=== PATIENT | female | born 1995 | race Caucasian/White ===

== ENCOUNTER 2020-05-27 15:25 | Emergency (ER) | payer OTHER ==
[~2020-05-27 15:25] MED LIST: GLUCOPHAGE850 MG PO; VENLAFAXINE HCL75 MG PO
[2020-05-27 16:38] LABS: BILIRUBIN NEGATIVE (NEGATIVE); BLOOD NEGATIVE Ery/uL (NEGATIVE); CLARITY CLEAR (CLEAR); COLOR YELLOW (YELLOW); GLUCOSE (U) NORMAL (NORMAL); LEUKOCYTES NEGATIVE Leu/uL (NEGATIVE); NITRITE NEGATIVE (NEGATIVE); PROTEIN NEGATIVE (NEGATIVE); SPECIFIC GRAVITY 1.025 (1.001-1.030); UROBILINOGEN 0.2 mg/dL (0.2-1.0)
[2020-05-27] MEDS ORDERED: NAPROXEN500 MG PO (18:22)
[2020-05-27] MEDS ORDERED: BACLOFEN 10MG T10 MG PO (18:22)
== END 2020-05-27 18:55 | disposition home or self-care (01) ==
LOC: FER 15:25
PROVIDERS: Emergency Medicine
DX: M54.41 Lumbago with sciatica, right side (principal)
CPT/HCPCS: 81003; 96372; 99283; J1100; J1885

== ENCOUNTER 2020-08-31 21:15 | Emergency (ER) | payer OTHER ==
[~2020-08-31 21:15] MED LIST changes: +BACLOFEN 10MG T10 MG PO; +NAPROXEN500 MG PO
[2020-08-31 23:04] LABS: BILIRUBIN NEGATIVE (NEGATIVE); BLOOD NEGATIVE Ery/uL (NEGATIVE); CLARITY CLEAR (CLEAR); COLOR YELLOW (YELLOW); GLUCOSE (U) NORMAL (NORMAL); LEUKOCYTES NEGATIVE Leu/uL (NEGATIVE); NITRITE NEGATIVE (NEGATIVE); PROTEIN NEGATIVE (NEGATIVE); UROBILINOGEN 0.2 mg/dL (0.2-1.0)
== END 2020-08-31 23:30 | disposition home or self-care (01) ==
LOC: FER 21:15
PROVIDERS: Emergency Medicine Emergency Medical Services
DX: N92.6 Irregular menstruation, unspecified (principal); E28.2 Polycystic ovarian syndrome; F17.200 Nicotine dependence, unspecified, uncomplicated; Z79.84 Long term (current) use of oral hypoglycemic drugs
CPT/HCPCS: 36415; 81003; 84702; 99284

== ENCOUNTER → 2021-02-14 | Day surgery (SDC) | payer OTHER ==
[~2021-02-14] VITALS: Ht 170.2 cm; Wt 127.0 kg
[~2021-02-14] MED LIST changes: +PRENATAL FORMU1 EACH PO
[2021-02-14 06:43] LABS: HCG (URINE) SCREEN NEGATIVE (NEGATIVE)
[2021-02-14 07:02] LABS: HCT 44.2 % (37.0-47.0); HGB 14.5 g/dl (12.5-16.0); MCH 27.1 pg (25.0-31.0); MCHC 32.8 g/dL (32.0-36.0); MCV 82.5 fL (78.0-100.0); MPV 10.9 fL (6.0-9.5); RBC 5.36 M/uL (4.20-5.40); RDW 13.5 % (11.5-14.0); WBC 7.7 K/uL (4.0-10.5)
== END | disposition home or self-care (01) ==
LOC: FAS 06:12
PROVIDERS: Anesthesiology; Legal Medicine
DX: M67.432 Ganglion, left wrist (principal)
CPT/HCPCS: 36415; 84703; 93005; J0690; J1100; J1170; J1885; J2250; J2405; J2704; J2795; J3010; J7120